=== PATIENT | female | born 1980 ===

== ENCOUNTER 2023-03-25 05:06 | Day surgery (SDC) | payer OTHER ==
[~2023-03-25] VITALS: Ht 154.9 cm; Wt 58.1 kg
[2023-03-25] MEDS ORDERED: PERCOCET 5-3251 EACH PO (10:58)
[2023-03-25] MEDS ORDERED: COLACE100 MG PO (10:58)
[2023-03-25] MEDS ORDERED: SIMETHICONE80 MG PO (10:58)
== END 2023-03-25 18:25 | disposition home or self-care (01) ==
LOC: CIR.AMB 05:06
PROVIDERS: ATTEND Student in an Organized Health Care Education/Training Program
DX: N83.291 Other ovarian cyst, right side (principal); N80.201 Endometriosis of right fallopian tube, unspecified depth; Z20.822 Contact with and (suspected) exposure to COVID-19; I10 Essential (primary) hypertension